=== PATIENT | female | born 1995 | race American Indian/Alaskan Native ===

== ENCOUNTER 2017-03-17 13:10 | Inpatient (IN) | payer MEDICAID ==
[2017-03-17] MEDS ORDERED: LACTATED RINGERS 1,000 ML ONE (14:01)
[2017-03-17] MEDS: LACTATED RINGERS 1,000 ML IV SCH ×2 (14:10→15:28)
--- NOTE | 2017-03-17 14:34 | History and Physical Report ---
History of Present Illness Date of examination: 03/17/17 Date of admission: 03/17/17 13:13 Chief complaint: Induction of labor History of present illness: Pt is a 22yo BF EDC 03/19/17; EGA 39 5/7 weeks presents to L&D for induction of labor per [facility] due to Oligohydramnios (JENN 4.0) and BPP 6/10. She received care at [facility] from 33 weeks, after transfer from [facility]. records are available and GBS is Negative. Past History Past Medical History: no pertinent history Past Surgical History: no surgical history Family/Genetic History: none Social history: no significant social history, single - Obstetrical History Expected Date of Delivery: 03/19/17 Actual Gestation: 39 Week(s) 5 Day(s) Medications and Allergies Allergies Allergy/AdvReac Type Severity Reaction Status Date / Time No Known Allergies Allergy Unverified 03/17/17 13:43 Review of Systems All systems: negative - Vital Signs Vital signs: Vital Signs Pulse BP 100 H 109/67 03/17/17 13:53 03/17/17 13:53 Temp Pulse Resp BP Pulse Ox 100 H 109/67 03/17/17 13:53 03/17/17 13:53 - Physical Exam Breasts: Positive: deferred Cardiovascular: Regular rate Lungs: Positive: Clear to auscultation Abdomen: Positive: normal appearance Genitourinary (Female): Positive: normal external genitalia Uterus: Positive: enlarged Extremities: Positive: normal - Obstetrical FHR: category 1 Uterine Contraction Monitor Mode: External Cervical Dilatation: 3.5 Cervical Effacement Percentage: 70 station: -3 Uterine Contraction Pattern: Irregular Uterine Tone Measurement Phase: Contraction Uterine Contraction Intensity: Mild Results Result Diagrams: 03/17/17 14:10 All other labs normal. Ultrasound: report reviewed Assessment and Plan - Patient Problems (1) 39 weeks gestation of Onset Date: 03/17/17 Current Visit: Yes Status: Acute Plan to address problem: A: IUP @ 39 5/7 weeks Oligohydramnios Morbid Obesity Non-reassuring surveillance P: Admit to L&D for pitocin induction of labor (2) Oligohydramnios antepartum Onset Date: 03/17/17 Current Visit: Yes Status: Acute Qualifiers: Fetus number: single or unspecified fetus Qualified Code(s): O41.00X0 - Oligohydramnios, unspecified trimester, not applicable or unspecified (3) Obesity (BMI 30-39.9) Onset Date: 03/17/17 Current Visit: Yes Status: Acute
[2017-03-17] MEDS ORDERED: MINERAL OIL PO PRN (14:36)
[2017-03-17] MEDS ORDERED: PHENERGAN PO PRN ×2 (14:36→23:26)
[2017-03-17] MEDS ORDERED: STADOL IV PRN (14:36)
[2017-03-17] MEDS ORDERED: ePHEDrine SULFATE IV PRN (14:36)
[2017-03-17] MEDS ORDERED: XYLOCAINE 2% INFILTRATI ONE ×2 (14:36→23:11)
[2017-03-17] MEDS ORDERED: BRETHINE SUB-Q PRN (14:36)
[2017-03-17] MEDS ORDERED: BRETHINE IVP PRN (14:36)
[2017-03-17] MEDS ORDERED: SUBLIMAZE IV PRN (14:36)
[2017-03-17] MEDS ORDERED: NARCAN 0.4 MG/1 ML IV PRN (14:36)
[2017-03-17] MEDS ORDERED: ZOFRAN IV PRN ×2 (14:36→23:26)
[2017-03-17 14:47] LABS: Hematocrit 35.1 % (30.3-42.9); Hemoglobin 11.7 gm/dl (10.1-14.3); Mean Corpuscular HGB Conc 33 % (30-34); Mean Corpuscular Hemoglobin 29 pg (28-32); Mean Corpuscular Volume 88 fl (79-97); Platelet Count 213 K/mm3 (140-440); Red Blood Count 4.01 M/mm3 (3.65-5.03); Red Cell Distribution Width 15.4 % (13.2-15.2); White Blood Count 6.8 K/mm3 (4.5-11.0)
[2017-03-17] MEDS ORDERED: PITOCin/NS 20 UNIT/1000ML DRIP 20 UNITS/1,000 ML BAG IV SCH ×2 (15:00→23:45)
[2017-03-17] MEDS ORDERED: PITOCin/NS 30 UNIT/500ML 30 UNITS/500 ML BAG IV SCH ×2 (15:00)
[2017-03-17] MEDS ORDERED: POLYCILLIN/NS 2 GM/100 ML 2 GM/100 ML BAG IV ONE (15:36)
[2017-03-17] MEDS ORDERED: POLYCILLIN/NS 1 GM/50 ML 1 GM/50 ML BAG IV SCH (18:38)
[2017-03-17] MEDS ORDERED: TYLENOL PO PRN ×2 (20:29→23:26)
--- NOTE | 2017-03-17 23:25 | Procedure Note ---
OB Delivery Note - Delivery Date of Delivery: 03/17/17 Surgeon: GILMA KEVIN Estimated blood loss: 200cc - Vaginal Delivery presentation: vertex Delivery position: OA Intrapartum events: hydramnios Delivery induction: oxytocin Delivery augmentation: rupture of membranes, pitocin Delivery monitor: external FHT, external uterine Route of delivery: Delivery placenta: spontaneous, manual Delivery cord: 3 umbilical vessels Episiotomy: none Delivery laceration: 2nd degree (perineal) Delivery repair: vicryl Anesthesia: local Delivery comments: delivered OA and placed on Mom's chest for [id number] bonding and delayed cord clamping. - A at 1 minute: 8 at 5 minutes: 9 Infant Gender: Female (3617gms)
[2017-03-17] MEDS ORDERED: TUCKS PAD TP PRN (23:26)
[2017-03-17] MEDS ORDERED: BENADRYL PO PRN (23:26)
[2017-03-17] MEDS ORDERED: DULCOLAX PR PRN (23:26)
[2017-03-17] MEDS ORDERED: LANSINOH TP PRN (23:26)
[2017-03-17] MEDS ORDERED: PHENERGAN PR PRN (23:26)
[2017-03-17] MEDS ORDERED: NORCO 5/325 PO PRN (23:26)
[2017-03-17] MEDS ORDERED: MILK OF MAGNESIA PO PRN (23:26)
[2017-03-17] MEDS ORDERED: SODIUM CHLORIDE FLUSH SYRINGE 10 ML IV NR (23:45)
[2017-03-18] MEDS: MOTRIN PO SCH ×3 (01:23→22:13)
[2017-03-18] MEDS ORDERED: M-M-R II VACCINE SUB-Q ONE (06:00)
[2017-03-18] MEDS ORDERED: BOOSTRIX IM ONE (06:00)
--- NOTE | 2017-03-18 09:02 | Progress Note ---
Assessment and Plan - Patient Problems (1) 39 weeks gestation of Onset Date: 03/17/17 Current Visit: Yes Status: Acute (2) Oligohydramnios antepartum Onset Date: 03/17/17 Current Visit: Yes Status: Acute Qualifiers: Fetus number: single or unspecified fetus Qualified Code(s): O41.00X0 - Oligohydramnios, unspecified trimester, not applicable or unspecified (3) Obesity (BMI 30-39.9) Onset Date: 03/17/17 Current Visit: Yes Status: Acute (4) (normal spontaneous vaginal delivery) Onset Date: 03/18/17 Current Visit: Yes Status: Acute Plan to address problem: A: S/P - PPD #1 Doing well P: May go home tomorrow Subjective - Subjective Date of service: 03/18/17 Principal diagnosis: s/p - PPD #1 Interval history: Pt is feeling well without complaints. Bleeding improved. Patient reports: appetite normal, voiding normally, pain well controlled, flatus , ambulating normally [place]: doing well, nursing well Objective - Vital Signs Latest vital signs: Vital Signs Temp Pulse Resp BP BP Pulse Ox 03/18/17 04:45 98.7 F 156 H 20 103/55 03/18/17 02:23 16 03/18/17 01:23 16 03/18/17 01:00 98.3 F 69 20 102/40 03/18/17 00:37 60 97 03/18/17 00:32 85 97 03/18/17 00:28 82 101/55 03/18/17 00:27 64 96 03/18/17 00:22 71 96 03/18/17 00:17 85 96 03/18/17 00:13 71 96/52 03/18/17 00:12 67 96 03/18/17 00:07 83 96 03/18/17 00:02 79 96 03/17/17 23:58 82 107/60 03/17/17 23:57 82 96 03/17/17 23:52 81 96 03/17/17 23:47 83 97 03/17/17 23:43 85 117/73 03/17/17 23:42 85 96 03/17/17 23:37 84 95 03/17/17 23:32 86 96 03/17/17 23:27 71 97 03/17/17 23:18 83 107/55 03/17/17 23:02 87 97 03/17/17 22:57 88 100 03/17/17 22:56 95 H 94 03/17/17 22:52 88 97 03/17/17 22:49 93 H 93 03/17/17 22:48 93 H 115/66 03/17/17 22:47 82 91 03/17/17 22:43 90 91 03/17/17 22:42 86 97 03/17/17 22:41 18 03/17/17 22:37 98 H 96 03/17/17 22:32 92 H 98 03/17/17 22:27 90 94 03/17/17 22:26 85 94 03/17/17 22:22 76 91 03/17/17 22:20 86 92 03/17/17 22:18 67 102/58 03/17/17 22:17 82 95 03/17/17 22:14 88 94 03/17/17 22:12 81 97 03/17/17 22:08 84 93 03/17/17 22:07 86 96 03/17/17 22:02 95 H 94 03/17/17 21:57 91 H 97 03/17/17 21:52 85 96 03/17/17 21:49 86 130/74 03/17/17 21:47 81 97 03/17/17 21:42 96 H 93 03/17/17 21:39 91 H 94 03/17/17 21:37 87 97 03/17/17 21:32 89 95 03/17/17 21:27 77 94 03/17/17 21:24 77 94 03/17/17 21:22 83 94 03/17/17 21:18 82 106/65 03/17/17 21:17 78 94 03/17/17 21:12 70 94 03/17/17 21:11 77 94 03/17/17 21:07 70 93 03/17/17 21:06 82 93 03/17/17 21:02 78 96 03/17/17 21:00 84 94 03/17/17 20:57 87 97 03/17/17 20:56 18 03/17/17 20:52 89 99 03/17/17 20:50 19 03/17/17 20:48 86 117/70 03/17/17 20:47 86 97 03/17/17 20:42 87 98 03/17/17 20:37 95 H 97 03/17/17 20:32 94 H 98 03/17/17 20:27 80 99 03/17/17 20:22 81 97 03/17/17 20:17 89 97 03/17/17 20:10 87 97 03/17/17 20:05 70 96 03/17/17 20:00 77 98 03/17/17 19:55 75 98 03/17/17 19:50 74 97 03/17/17 19:45 72 97 03/17/17 19:40 70 97 03/17/17 19:35 75 98 03/17/17 19:30 91 H 99 03/17/17 19:27 80 113/67 03/17/17 19:25 97 03/17/17 19:20 97.6 F 88 18 113/67 98 03/17/17 17:46 98.2 F 18 03/17/17 16:50 81 118/73 03/17/17 16:22 81 112/59 03/17/17 16:09 81 110/61 03/17/17 15:53 82 108/63 03/17/17 15:21 81 106/63 03/17/17 14:51 81 102/63 03/17/17 14:33 98.5 F 18 03/17/17 13:53 100 H 109/67 Intake and Output 03/17/17 03/18/17 03/18/17 22:59 06:59 14:59 Intake Total 169.633 720 Output Total 1600 Balance 169.633 -880 Intake: IV 169.633 Lactated Ringers 1,000 ml 162.5 @ 125 mls/hr IV DIRECT [facility] Rx#:[id number] PITOCin/NS 30 UNIT/500ML 7.133 30 units In 500 ml @ 4 mls/hr IV TITR [facility] Rx#: [id number] Oral 360 Intake, Free Water 360 Output: Urine 1600 Void 1600 Other: Total, Intake Amount 360 Total, Output Amount 600 Estimated Blood Loss 200 - Exam Cardiovascular: Present: Regular rate Abdomen: Present: normal appearance, soft Uterus: Present: normal, firm, fundal height below umbilicus Extremities: Present: normal - Labs Labs: Abnormal lab results 03/17/17 Range/Units 14:10 RDW 15.4 H (13.2-15.2) % Laboratory Tests 03/17/17 03/17/17 03/17/17 14:10 14:10 14:10 WBC 6.8 RBC 4.01 Hgb 11.7 Hct 35.1 MCV 88 MCH 29 MCHC 33 RDW 15.4 H Plt Count 213 RPR Nonreactive Blood Type B POSITIVE Antibody Screen Negative 03/18/17 12:11 WBC RBC Hgb 11.8 Hct 35.8 MCV MCH MCHC RDW Plt Count RPR Blood Type Antibody Screen
[2017-03-18] MEDS: FEOSOL PO SCH ×2 (11:36→22:13)
[2017-03-18] MEDS: PRENATAL VITAMIN PO SCH (11:36)
[2017-03-18] MEDS: COLACE PO SCH ×2 (11:37→22:13)
[2017-03-18] MEDS ORDERED: Fluarix Quad 2017-2018(36 MOS+ IM ONE (12:00)
[2017-03-18 12:23] LABS: Hematocrit 35.8 % (30.3-42.9); Hemoglobin 11.8 gm/dl (10.1-14.3)
[2017-03-19] MEDS: MOTRIN PO SCH (05:23)
[2017-03-19] MEDS ORDERED: BOOSTRIX IM ONE (06:00)
--- NOTE | 2017-03-19 08:55 | Discharge Summary ---
Providers - Providers Date of Admission: 03/17/17 13:13 Date of discharge: 03/19/17 Attending physician: GILMA KEVIN Primary care physician: JEREL JONES Hospitalization Reason for admission: induction of labor, IUP at term Delivery: Episiotomy: none Laceration: 2nd degree Other procedures: none complications: none Discharge diagnosis: IUP at term delivered baby: female Hospital course: Unremarkable. Condition at discharge: Good Disposition: DC-01 TO HOME OR SELFCARE - Discharge Diagnoses (1) 39 weeks gestation of Status: Resolved (2) Oligohydramnios antepartum Status: Resolved Qualifiers: Fetus number: single or unspecified fetus Qualified Code(s): O41.00X0 - Oligohydramnios, unspecified trimester, not applicable or unspecified (3) Obesity (BMI 30-39.9) Status: Chronic (4) (normal spontaneous vaginal delivery) Status: Resolved Plan - Discharge Medications Prescriptions: Ibuprofen [Motrin 600 MG tab] 600 mg PO Q6H #30 tablet Vit-Fe Fumar-FA [ Vitamin] 1 each PO QDAY #30 tablet - Provider Discharge Summary Activity: routine, no sex for 6 weeks, no heavy lifting 4 weeks, no strenuous exercise Diet: routine Instructions: routine Additional instructions: [] Smoking cessation referral if applicable(refer to patient education folder for contact #) [] Refer to [facility] Booklet Call your doctor immediately for: * Fever > 100.5 * Heavy vaginal bleeding ( >1 pad per hour) * Severe persistent headache * Shortness of breath * Reddened, hot, painful area to leg or breast * Drainage or odor from incision. * Keep incision clean and dry at all times and follow doctor's instructions regarding bathing/showering - Follow up plan Follow up: JEREL JONES MD [Primary Care Provider] - 6 Weeks
[2017-03-19] MEDS: COLACE PO SCH (09:49)
[2017-03-19] MEDS: FEOSOL PO SCH (09:49)
[2017-03-19] MEDS: PRENATAL VITAMIN PO SCH (09:49)
[2017-03-19 10:27] VITALS: BP 107/64
== END 2017-03-19 21:01 | disposition home or self-care (01) | DRG 775 ==
LOC: TRG 13:10 → LD 13:13 → OB 03-18 00:52
PROVIDERS: ADMIT Obstetrics & Gynecology; ATTEND Obstetrics & Gynecology
PROC: 10E0XZZ Delivery of Products of Conception, External Approach (ICD-10-PCS; principal; 2017-03-17)
PROC: 0KQM0ZZ Repair Perineum Muscle, Open Approach (ICD-10-PCS; 2017-03-17)
PROC: 3E033VJ Introduction of Other Hormone into Peripheral Vein, Percutaneous Approach (ICD-10-PCS; 2017-03-17)
PROC: 3E0234Z Introduction of Serum, Toxoid and Vaccine into Muscle, Percutaneous Approach (ICD-10-PCS; 2017-03-18)
DX: O41.03X0 Oligohydramnios, third trimester, not applicable or unspecified (principal); O70.1 Second degree perineal laceration during delivery; O99.214 Obesity complicating childbirth; E66.01 Morbid (severe) obesity due to excess calories; O76 Abnormality in fetal heart rate and rhythm complicating labor and delivery; Z3A.39 39 weeks gestation of pregnancy; Z37.0 Single live birth; Z68.38 Body mass index [BMI] 38.0-38.9, adult; Z23 Encounter for immunization
CPT/HCPCS: 36415; 85014; 85018; 85027; 86592; 86850; 86900; 86901; 90471; 90686; 90715; 99211; G0463; J0290; J0595; J2590; J3010; J7120